=== PATIENT | male | born 1960 | race African-American/Black ===

== ENCOUNTER 2018-06-15 09:46 | Day surgery (SDC) | payer MEDICAID ==
[~2018-06-15] VITALS: Ht 180.3 cm; Wt 111.0 kg
[~2018-06-15 09:46] MED LIST: 0.9% SODIUM CHLORIDE 10 ML SYRINGE IVP PRN; ALPR1TAB7 PO; AMLO-512 PO; ASPI-1182 PO; CARI350 PO; CHL25 PO; EXEN2VIA SQ; GABA600T10 PO; GLUC15006 PO; KDUR10 PO; LOSA25TA41 PO; METF-960 PO; METOPROLOL TARTRATE 50 MG TABLET PO PRN; PANT40TA25 PO; SILD25 PO; TAMS0.4C32 PO; VITAD1000 PO; XALA2.5OS OU
[2018-06-15] MEDS ORDERED: METOPROLOL TARTRATE 50 MG TABLET ONE (10:34)
[2018-06-15 10:44] LABS: GLUCOMETER DEV NAME(LOC) SDS.; GLUCOSE,POINT OF CARE 83 MG/DL (70-110)
[2018-06-15] MEDS ORDERED: METOPROLOL TARTRATE 5 MG/5 ML VIAL ONE ×3 (10:45→11:55)
[2018-06-15] MEDS ORDERED: METOPROLOL TARTRATE 5 MG/5 ML VIAL IVP ONE ×4 (11:00→12:18)
[2018-06-15] MEDS ORDERED: NITROGLYCERIN 400 MCG/SUBLINGUAL SPRAY 4.9 GM BOTTLE SL ONE ×2 (11:55→12:25)
[2018-06-15] MEDS ORDERED: IOVERSOL 350 MG/ML 150 ML VIAL ONE (12:10)
[2018-06-15] MEDS ORDERED: SODIUM CHLORIDE 0.9% 100 ML ONE (12:10)
== END 2018-06-15 13:10 | disposition home or self-care (01) ==
LOC: SURGERY 09:46 → EDSTATUS 11:00 → SURGERY 13:10
PROVIDERS: ATTEND Internal Medicine Cardiovascular Disease
DX: I25.118 Atherosclerotic heart disease of native coronary artery with other forms of angina pectoris (principal); M47.814 Spondylosis without myelopathy or radiculopathy, thoracic region; M19.90 Unspecified osteoarthritis, unspecified site; E11.9 Type 2 diabetes mellitus without complications; I11.9 Hypertensive heart disease without heart failure; F12.90 Cannabis use, unspecified, uncomplicated; Z86.19 Personal history of other infectious and parasitic diseases; Z79.82 Long term (current) use of aspirin; Z79.84 Long term (current) use of oral hypoglycemic drugs; Z79.01 Long term (current) use of anticoagulants; Z79.891 Long term (current) use of opiate analgesic; Z87.891 Personal history of nicotine dependence; Z91.018 Allergy to other foods; Z88.8 Allergy status to other drugs, medicaments and biological substances; Z98.890 Other specified postprocedural states; Z79.899 Other long term (current) drug therapy
CPT/HCPCS: 75574; 93005; J3490; J7050

== ENCOUNTER 2019-02-15 07:20 | Day surgery (SDC) | payer MEDICAID ==
[~2019-02-15] VITALS: Ht 180.3 cm; Wt 118.2 kg
[~2019-02-15 07:20] MED LIST changes: -AMLO-512 PO; +AMLO10TA7 PO; -CARI350 PO; +CARI350T26 PO; +CHOL100018 PO; -VITAD1000 PO
[2019-02-15] MEDS ORDERED: METOPROLOL TARTRATE 50 MG TABLET ONE (07:52)
[2019-02-15 08:15] LABS: ANION GAP 7 mmol/L (8-16); CALCIUM, TOTAL 8.3 mg/dL (8.8-10.5); CARBON DIOXIDE 28 mmol/L (22-29); CHLORIDE 100 mmol/L (98-107); CREATININE 1.13 mg/dL (0.60-1.30); GLOMERULAR FILTR. RATE CALC > 60 mL/min (>60); GLUCOSE,RANDOM 116 mg/dL (70-110); SODIUM SERUM 135 mmol/L (136-145); UREA NITROGEN, BLOOD 19 mg/dL (7-18)
[2019-02-15] MEDS ORDERED: METOPROLOL TARTRATE 5 MG/5 ML VIAL IVP ONE (08:30)
== END 2019-02-15 09:05 | disposition home or self-care (01) ==
LOC: SURGERY 07:20 → EDSTATUS 08:00 → SURGERY 09:05
PROVIDERS: ATTEND Internal Medicine Cardiovascular Disease
DX: I20.9 Angina pectoris, unspecified (principal); I10 Essential (primary) hypertension; N40.0 Benign prostatic hyperplasia without lower urinary tract symptoms; E11.9 Type 2 diabetes mellitus without complications; E66.9 Obesity, unspecified; Z68.38 Body mass index [BMI] 38.0-38.9, adult; Z79.899 Other long term (current) drug therapy; Z79.84 Long term (current) use of oral hypoglycemic drugs; Z79.82 Long term (current) use of aspirin
CPT/HCPCS: 36415; 80048; 93005; J3490

== ENCOUNTER 2019-02-27 06:00 | Day surgery (SDC) | payer MEDICAID ==
[~2019-02-27] VITALS: Ht 180.3 cm; Wt 118.6 kg
[~2019-02-27 06:00] MED LIST changes: +HYDR-4061 PO; +MORP15 PO; +TAMS-13 PO; -TAMS0.4C32 PO
[2019-02-27] MEDS ORDERED: METOPROLOL TARTRATE 50 MG TABLET ONE (06:35)
[2019-02-27 06:56] LABS: GLUCOMETER DEV NAME(LOC) SDS.; GLUCOSE,POINT OF CARE 115 MG/DL (70-110)
[2019-02-27] MEDS ORDERED: METOPROLOL TARTRATE 5 MG/5 ML VIAL IVP ONE ×3 (07:00→09:05)
[2019-02-27] MEDS ORDERED: METOPROLOL TARTRATE 5 MG/5 ML VIAL ONE ×2 (07:08→08:18)
[2019-02-27] MEDS ORDERED: ATROPINE SULFATE 0.1 MG/ML 10 ML SYRINGE IVP ONE (08:18)
[2019-02-27] MEDS ORDERED: IOVERSOL 350 MG/ML 150 ML VIAL ONE (08:42)
[2019-02-27] MEDS ORDERED: SODIUM CHLORIDE 0.9% 100 ML ONE (08:42)
[2019-02-27] MEDS ORDERED: NITROGLYCERIN 400 MCG/SUBLINGUAL SPRAY 4.9 GM BOTTLE SL ONE ×2 (08:59→09:16)
== END 2019-02-27 10:00 | disposition home or self-care (01) ==
LOC: SURGERY 06:00
PROVIDERS: ATTEND Internal Medicine Cardiovascular Disease
DX: R07.9 Chest pain, unspecified (principal)
CPT/HCPCS: 75574; 82962; 93005; J3490; J7050; Q9967; J0461

== ENCOUNTER 2020-12-15 06:28 | Day surgery (SDC) | payer MEDICAID ==
[2020-12-12 09:22] LABS: COVID AG,FIA SOURCE NASOPHARYNGEAL
[~2020-12-15] VITALS: Ht 180.3 cm; Wt 119.1 kg
[~2020-12-15 06:28] MED LIST changes: -0.9% SODIUM CHLORIDE 10 ML SYRINGE IVP PRN; +AMLO-258 PO; -AMLO10TA7 PO; -ASPI-1182 PO; +ASPI-1444 PO; -KDUR10 PO; +LOSA25TA21 PO; -LOSA25TA41 PO; -METOPROLOL TARTRATE 50 MG TABLET PO PRN; +PANT-31 PO; -PANT40TA25 PO; +POTA-92 PO; +SODIUM CHLORIDE 0.9% 1,000 ML ONE
[2020-12-15] MEDS ORDERED: BENZOCAINE 20% 50 MCG/SPRAY 57 GM TP ONE (06:29)
[2020-12-15] MEDS ORDERED: LIDOCAINE 2% 30 ML JELLY TP ONE (06:29)
[2020-12-15] MEDS ORDERED: ALBUTEROL SULFATE 2.5 MG/0.5 ML NEB SOLUTION NEB ONE (06:29)
[2020-12-15] MEDS ORDERED: SODIUM CHLORIDE 0.9% 1,000 ML IV ONE (06:30)
[2020-12-15] MEDS ORDERED: MIDAZOLAM HCL 5 MG/ML VIAL ONE (07:41)
[2020-12-15] MEDS ORDERED: FentaNYL CITRATE PF 100 MCG/2 ML VIAL ONE (07:41)
[2020-12-15 07:57] LABS: GLUCOMETER DEV NAME(LOC) SDS.; GLUCOSE,POINT OF CARE 114 MG/DL (70-110)
[2020-12-15] MEDS ORDERED: MethylPREDNISolone SOD SUCC 125 MG/2 ML VIAL IVP ONE (09:00)
[2020-12-15] MEDS ORDERED: MethylPREDNISolone SOD SUCC 125 MG/2 ML VIAL ONE (09:38)
[2020-12-15] MEDS ORDERED: OXYGEN THERAPY IH SCH (20:00)
== END 2020-12-15 10:40 | disposition home or self-care (01) ==
LOC: SURGERY 06:28
PROVIDERS: ATTEND Internal Medicine Critical Care Medicine
DX: J38.4 Edema of larynx (principal); B37.0 Candidal stomatitis; I48.91 Unspecified atrial fibrillation; F41.9 Anxiety disorder, unspecified; E78.5 Hyperlipidemia, unspecified; G47.00 Insomnia, unspecified; Z79.899 Other long term (current) drug therapy; Z86.19 Personal history of other infectious and parasitic diseases; Z90.49 Acquired absence of other specified parts of digestive tract; Z98.890 Other specified postprocedural states
CPT/HCPCS: 31623; 31624; 71045; 82962; 87015; 87070; 87101; 87205; 87206; 87220; 87426; 88108; 88312; C9803; J2250; J2930; J3010; J7030; J7613